=== PATIENT | male | born 1970 | race Caucasian/White ===

== ENCOUNTER 2018-08-10 05:24 | Emergency (ER) | payer OTHER ==
[~2018-08-10] VITALS: Ht 165.1 cm; Wt 80.9 kg
[2018-08-10 06:00] VITALS: Ht 165.1 cm; Wt 80.9 kg
[2018-08-10 06:57] VITALS: BP 136/95
== END 2018-08-10 06:57 | disposition home or self-care (01) ==
LOC: ED 05:24
DX: L02.416 Cutaneous abscess of left lower limb (principal)
CPT/HCPCS: J2001